=== PATIENT | female | born 1970 | race Hispanic/Latino ===

== ENCOUNTER 2024-04-30 17:16 | Emergency (ER) | payer BC ==
[~2024-04-30] VITALS: Ht 157.5 cm; Wt 100.3 kg
[2024-04-30] MEDS ORDERED: IBUPROFEN200 MG PO (17:45)
[2024-04-30] MEDS ORDERED: GABAPENTIN300 MG PO (17:45)
[2024-04-30 18:44] VITALS: PULSE 78; RESP 16; TEMP 98.6; O2SAT 98
== END 2024-04-30 19:00 | disposition home or self-care (01) ==
LOC: FSED 17:25
DX: R20.0 Anesthesia of skin (principal); G62.9 Polyneuropathy, unspecified
CPT/HCPCS: 70450; 72125; 82948; 99283